=== PATIENT | female | born 1945 | race Caucasian/White ===

== ENCOUNTER 2017-02-02 10:30 | Outpatient (RCR) | payer MEDICARE, BC | END 2017-02-27 12:25 | disposition home or self-care (01) | LOC: MKS.ESL.PT 10:30 | DX: N81.4 Uterovaginal prolapse, unspecified (principal) | CPT/HCPCS: G8990-GP; G8991-GP; G8992-GP ==

== ENCOUNTER → 2018-05-28 | Outpatient (CLI) | payer MEDICARE, BC | LOC: ZCOL.LAB 14:07 | DX: H92.11 Otorrhea, right ear (principal) ==

== ENCOUNTER → 2019-09-23 | Outpatient (CLI) | payer MEDICARE, BC | LOC: MC.RAD 11:52 | DX: Z12.31 Encounter for screening mammogram for malignant neoplasm of breast (principal) ==

== ENCOUNTER → 2019-10-31 | Outpatient (CLI) | payer MEDICARE, BC | LOC: COL.RAD 07:04 | DX: R10.12 Left upper quadrant pain (principal) | CPT/HCPCS: Q9967 ==

== ENCOUNTER 2021-08-22 06:32 | Inpatient (IN) | payer MEDICARE, OTHER ==
[~2021-08-22] VITALS: Ht 157.5 cm; Wt 51.7 kg
[2021-08-22 06:52] LABS: BASO # 0.1 K/mm3 (0.0-0.2); BASO % 0.5 % (0.0-2.0); EOS # 0.1 K/mm3 (0.0-0.7); EOS % 0.8 % (0.0-4.0); GRAN # 7.5 K/mm3 (1.4-6.5); HEMATOCRIT 34.7 % (37.0-47.0); HEMOGLOBIN 11.8 g/dl (12.5-16.0); LYMPH # 2.4 K/mm3 (1.2-3.4); LYMPH % 21.9 % (20.0-51.0); MEAN CELL VOLUME 88 fl (80.0-100.0); MEAN CORPUSCULAR HEMOGLOBIN 30 pg (27-31); MEAN CORPUSCULAR HGB CONC 34 g/dl (33.0-37.0); MEAN PLATELET VOLUME 11.8 fl (7.4-10.4); MONO # 0.9 K/mm3 (0.1-0.6); MONO % 8.5 % (1.7-9.3); PLATELET COUNT 341 K/mm3 (130-400); RED BLOOD COUNT 3.95 M/mm3 (4.10-5.30); REDCELL DISTRIBUTION WIDTH-CV 12.6 % (11.5-14.5)
[2021-08-22 07:02] LABS: PROTHROMBIN TIME 11.2 SECONDS (9.7-12.8)
[2021-08-22 07:05] LABS: PARTIAL THROMBOPLASTIN TIME 30.5 SECONDS (26.0-37.0)
[2021-08-22 07:10] LABS: CREATININE, serum 1.37 mg/dL (0.57-1.11); MAGNESIUM 2.4 mg/dL (1.6-2.6); POTASSIUM 3.2 mmol/L (3.5-4.5)
[2021-08-22 07:27] LABS: TROPONIN-I 0.057 ng/mL (0.00-0.033)
[2021-08-22 07:34] LABS: COLLECTION METHOD CLEAN CATCH
[2021-08-22 07:47] LABS: ALBUMIN 3.4 gm/dL (3.4-4.8); BILIRUBIN,TOTAL 0.7 mg/dL (0.2-1.2); CALCIUM 15.7 mg/dL (8.4-10.2)
[2021-08-22 07:58] LABS: PH 8 (5-8); SQUAMOUS EPITHELIAL 0-2 /hpf (0-10); URINE APPEARANCE Hazy (CLEAR/HAZY); URINE BACTERIA Rare /hpf (NONE SEEN); URINE BILIRUBIN Negative (NEGATIVE); URINE BLOOD Negative (NEGATIVE); URINE COLOR Straw (YELLOW); URINE GLUCOSE Negative (NEGATIVE); URINE KETONE Negative (NEGATIVE); URINE LEUKOCYTE ESTERASE 1+ (NEGATIVE); URINE NITRATE Negative (NEGATIVE); URINE PROTEIN(semi-quant) Negative (NEGATIVE); URINE RBC 0-2 /hpf (0-2); URINE UROBILINOGEN Negative (NEGATIVE)
[2021-08-22] MEDS ORDERED: AMOXICILLIN 8751 TAB PO (08:56)
[2021-08-22] MEDS ORDERED: ZOFRAN ODT4 MG PO (08:56)
[2021-08-22] MEDS ORDERED: APRESOLINE 10MG10 MG PO (08:58)
[2021-08-22 09:45] VITALS: BP 147/69; PULSE 66; TEMP 98.3
--- NOTE | 2021-08-22 10:36 | NUR ---
PT ADMITTED TO UNIT. ADMISSION INTAKE AND ASSESSMENT COMPLETED. MED REC UPDATED. PT ORIENTED TO ROOM. DENIES ANY CHEST PAIN AT THIS TIME. UPDATED ON POC. WILL CONTINUE TO MONITOR.
[2021-08-22 12:20] VITALS: BP 132/72; PULSE 67; TEMP 98.1
[2021-08-22 15:45] LABS: CREATININE, serum 1.19 mg/dL (0.57-1.11); POTASSIUM 3.1 mmol/L (3.5-4.5)
[2021-08-22 15:56] LABS: CALCIUM 13.4 mg/dL (8.4-10.2); TROPONIN-I 0.411 ng/mL (0.00-0.033)
[2021-08-22 16:05] VITALS: BP 146/65; PULSE 73; TEMP 98.3
[2021-08-22 20:47] VITALS: BP 137/62; PULSE 71; TEMP 98.7
[2021-08-23] VITALS (8 sets, daily range): BP systolic 124–157; BP diastolic 58–71; PULSE 62–98; TEMP 97.9–98.2
[2021-08-23 06:43] LABS: BASO # 0.1 K/mm3 (0.0-0.2); BASO % 0.9 % (0.0-2.0); EOS # 0.2 K/mm3 (0.0-0.7); EOS % 3.2 % (0.0-4.0); GRAN # 4.6 K/mm3 (1.4-6.5); GRAN % 60.7 % (42.2-75.2); LYMPH # 1.9 K/mm3 (1.2-3.4); LYMPH % 25.1 % (20.0-51.0); MEAN CELL VOLUME 90 fl (80.0-100.0); MEAN CORPUSCULAR HGB CONC 33 g/dl (33.0-37.0); MEAN PLATELET VOLUME 12.1 fl (7.4-10.4); MONO # 0.7 K/mm3 (0.1-0.6); MONO % 9.7 % (1.7-9.3); PLATELET COUNT 293 K/mm3 (130-400)
[2021-08-23 07:05] LABS: CALCIUM 12.4 mg/dL (8.4-10.2); CHOLESTEROL RISK RATIO 3.8; CREATININE, serum 1.25 mg/dL (0.57-1.11); HEMATOCRIT 28.8 % (37.0-47.0); MEAN CORPUSCULAR HEMOGLOBIN 29 pg (27-31); PHOSPHOROUS 2.5 mg/dL (2.3-4.7); POTASSIUM 3.6 mmol/L (3.5-4.5)
[2021-08-23 07:08] LABS: HEMOGLOBIN 9.4 g/dl (12.5-16.0)
--- NOTE | 2021-08-23 08:55 | NUR ---
PT OFF UNIT FOR PROCEDURE.
--- NOTE | 2021-08-23 10:11 | NUR ---
PT BACK FROM PROCEDURE AT THIS TIME. MORNING MEDICATIONS GIVEN. SHIFT ASSESSMENT COMPLETED. PT REMAINS NPO AT THIS TIME. WILL CONTINUE TO MONITOR.
[2021-08-23] MEDS ORDERED: ASPIRIN 81M81 MG/TA2 PO (11:14)
[2021-08-23] MEDS ORDERED: LIPITOR20 MG PO (11:15)
--- NOTE | 2021-08-23 13:16 | NUR ---
IV D/C. TELE D/C. DISCHARGE INSTRUCTIONS GIVEN, AT BEDSIDE. ALL QUESTIONS ANSWERED. PT ESCORTED DOWN TO VEHICLE WITH BLEONGINGS. WILL D/C FROM SYSTEM.
--- NOTE | 2021-08-25 17:59 | NUR ---
call out clerk MD; Dr. 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 Calcium upon discharge was 12.4. He stated he make sure that Dr. Perez was aware
== END 2021-08-23 13:18 | disposition home or self-care (01) | DRG 641 ==
LOC: COL.ER 06:32 → MEDICAL 08:48
PROVIDERS: Emergency Medicine; Family Medicine; Physician Assistant; ADMIT Student in an Organized Health Care Education/Training Program
DX: E83.52 Hypercalcemia (principal); I24.8 Other forms of acute ischemic heart disease; N17.9 Acute kidney failure, unspecified; I48.91 Unspecified atrial fibrillation; I10 Essential (primary) hypertension; H40.9 Unspecified glaucoma; E87.6 Hypokalemia; E83.39 Other disorders of phosphorus metabolism; D64.9 Anemia, unspecified; E86.0 Dehydration; I34.0 Nonrheumatic mitral (valve) insufficiency; D72.829 Elevated white blood cell count, unspecified
CPT/HCPCS: 99239; A9500; J2785; J7030; J7040; J7050

== ENCOUNTER → 2021-08-25 | Outpatient (CLI) | payer MEDICARE, OTHER ==
[~2021-08-25] MED LIST: AMOXICILLIN 8751 TAB PO; APRESOLINE 10MG10 MG PO; ASPIRIN 81M81 MG/TA2 PO; LIPITOR20 MG PO; ZOFRAN ODT4 MG PO
[2021-08-25 16:53] LABS: CREATININE, serum 1.31 mg/dL (0.57-1.11); POTASSIUM 3.1 mmol/L (3.5-4.5)
[2021-08-25 17:16] LABS: CALCIUM 12.8 mg/dL (8.4-10.2)
== END ==
LOC: COL.LAB 16:16
PROVIDERS: Physician Assistant
DX: E83.52 Hypercalcemia (principal)